=== PATIENT | male | born 1980 | race Caucasian/White ===

== ENCOUNTER 2019-04-24 10:24 | Emergency (ER) | payer SELFPAY ==
--- NOTE | 2019-04-24 11:13 | ER Document Report ---
Entered by MIGUEL PRINCE SCRIBE 04/24/19 1045 Acting as scribe for:JOHNSON CHEUNG MD ED Substance Abuse / Acc. OD - General Stated Complaint: EVALUATION Time Seen by Provider: 04/24/19 10:35 Information source: Patient Notes: Patient is a 38 year old male that presents to the emergency department today for routine lab work from [facility] facility. Patient states that he usually lives in [place]. Patient reports that he lost his apartment in [place] so he decided to try to get into a detox program since he had nowhere to live. Patient states that [place] [facility] so he went to detox in [place]. Patient states he was released from this detox program in [place] about about a week ago. Patient states he had nowhere to live after discharge. Patient reports he immediately relapsed after being discharged. Patient states that he called mobile crisis after relapsing. Patient states that "there was a bed here at [facility]" so the patient was then brought here to [facility] from [place]. 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 EMS reports when they arrived the patient had a pulse in the low 100s. Patient reports the patient never was bradycardic for them. - Related Data Allergies/Adverse Reactions: No Known Allergies Allergy (Verified 04/24/19 11:17) Past Medical History - General Information source: Patient - Social History Smoking Status: Current Every Day Smoker Cigarette use (# per day): Yes - 1 ppd Frequency of alcohol use: Rare Drug Abuse: Heroin Lives with: Family Family History: Reviewed & Not Pertinent Review of Systems - Review of Systems Constitutional: See HPI, Other - here for routine lab work from [facility] EENT: No symptoms reported Cardiovascular: No symptoms reported Respiratory: No symptoms reported Gastrointestinal: No symptoms reported Genitourinary: No symptoms reported Male Genitourinary: No symptoms reported Musculoskeletal: No symptoms reported Skin: No symptoms reported Hematologic/Lymphatic: No symptoms reported Neurological/Psychological: No symptoms reported -: Yes All other systems reviewed and negative Physical Exam - Vital signs Vitals: Pulse Ox 97 04/24/19 10:30 - Notes Notes: Physical Exam: General: Alert, appears well. HEENT: Normocephalic. Atraumatic. PERRL. Extraocular movements intact. Oropharynx clear. Neck: Supple. Non-tender. Respiratory: No respiratory distress. Clear and equal breath sounds bilaterally. Cardiovascular: Regular rate and rhythm. Abdominal: Normal Inspection. Non-tender. No distension. Normal Bowel Sounds. Back: No gross abnormalities. Extremities: Moves all four extremities. Upper extremities: Normal inspection. Normal ROM. Lower extremities: Normal inspection. No edema. Normal ROM. Neurological: Normal cognition. AAOx4. Normal speech. Psychological: Normal affect. Normal Mood. Skin: Warm. Dry. Normal color. Course - Re-evaluation Re-evalutation: 04/24/19 12:56 The patient will occasionally have frequent PVCs, many of them are non- perfusing. That may be the reason that they were recording the low pulse rates with this patient. 04/24/19 14:26 There are episodes where the patient's PVCs are every other or every third beat, when they do not perfused, someone checking his pulse for only a few seconds could get a result of heart rate in the 40s. Patient is completely asymptomatic during these episodes. He does not feel the PVCs. He can be standing when they occur and he does not get dizzy. On further questioning the patient has no family history of sudden cardiac arrest or sudden . His grandparents on one side of the family are alive in their 90s and the grandparents on the other side of the family in their 80s. His parents are alive and well. - Vital Signs Vital signs: Temp Pulse Resp BP Pulse Ox 98.2 F 16 125/85 100 04/24/19 10:46 04/24/19 13:01 04/24/19 13:01 04/24/19 13:01 - Laboratory Result Diagrams: 04/24/19 10:50 04/24/19 10:50 Laboratory results interpreted by me: 04/24/19 04/24/19 04/24/19 10:50 10:50 11:38 RDW 14.9 H Monocytes % (Manual) 21 H AST 76 H Creatine Kinase 537 H Urine Urobilinogen 2.0 H - EKG Interpretation by Nd EKG shows normal: Sinus rhythm, [place], Intervals, QRS Complexes, ST-T Waves Rate: Normal - 89 Rhythm: PVC's Discharge - Discharge Clinical Impression: Frequent unifocal PVCs Condition: Stable Disposition: HOME, SELF-CARE Additional Instructions: The patient's low heart rate was a result of him having frequent non-perfusing PVCs. He is asymptomatic during these episodes. He should not receive medications like clonidine or other beta-blockers that may slow the rate further and cause him to become symptomatic if he continues to have non-perfusing PVCs as frequently as he does now. Return to the [facility] detox facility. RETURN TO THE EMERGENCY ROOM IF ANY NEW OR WORSENING SYMPTOMS. Scribe Attestation: 04/24/19 12:11 I personally performed the services described in the documentation, reviewed and edited the documentation which was dictated to the scribe in my presence, and it accurately records my words and actions. I personally performed the services described in the documentation, reviewed and edited the documentation which was dictated to the scribe in my presence, and it accurately records my words and actions.
[2019-04-24 11:17] LABS: HEMATOCRIT 47.6 % (37.9-51.0); MEAN CORPUSCULAR HEMOGLOBIN 29.4 pg (27.0-33.4); MEAN CORPUSCULAR HGB CONC 33.5 g/dL (32.0-36.0); MEAN CORPUSCULAR VOLUME 88 fl (80-97); PLATELET COUNT 175 10^3/uL (150-450); RED BLOOD COUNT 5.42 10^6/uL (4.35-5.55); RED CELL DISTRIBUTION WIDTH 14.9 % (11.5-14.0); WHITE BLOOD COUNT 5.8 10^3/uL (4.0-10.5)
[2019-04-24 11:24] LABS: ALBUMIN 3.8 g/dL (3.5-5.0); ALKALINE PHOSPHATASE 68 U/L (38-126); ANION GAP 10 (5-19); ASPARTATE AMINO TRANSFERASE 76 U/L (17-59); BILIRUBIN,DIRECT 0.2 mg/dL (0.0-0.4); BILIRUBIN,TOTAL 0.3 mg/dL (0.2-1.3); BLOOD UREA NITROGEN 12 mg/dL (7-20); CALCIUM 9.8 mg/dL (8.4-10.2); CARBON DIOXIDE 28 mmol/L (22-30); CHLORIDE 104 mmol/L (98-107); CREATINE KINASE 537 U/L (55-170); GLUCOSE 97 mg/dL (75-110); POTASSIUM 4.2 mmol/L (3.6-5.0); TOTAL PROTEIN 6.7 g/dL (6.3-8.2)
[2019-04-24 11:38] LABS: CREATINE KINASE MB 0.47 ng/mL (<4.55)
[2019-04-24 11:39] LABS: TROPONIN I < 0.012 ng/mL
[2019-04-24 12:00] LABS: ABSOLUTE LYMPHOCYTES# (MANUAL) 1.5 10^3/uL (0.5-4.7); ABSOLUTE MONOCYTES # (MANUAL) 1.2 10^3/uL (0.1-1.4); ANISOCYTOSIS SLIGHT; BASOPHILS % (MANUAL) 2 % (0-2); EOSINOPHILS % (MANUAL) 2 % (0-6); LYMPHOCYTES % (MANUAL) 25 % (13-45); MONOCYTES % (MANUAL) 21 % (3-13); OVALOCYTES SLIGHT; PLATELET COMMENT ADEQUATE; POIKILOCYTOSIS SLIGHT; SEGMENTED NEUTROPHILS % (MAN) 50 % (42-78); TOTAL CELLS COUNTED 100
[2019-04-24 12:06] LABS: AMORPHOUS SEDIMENT,URINE TRACE /HPF; APPEARANCE,URINE SLIGHTLY-CLOUDY; BILIRUBIN,URINE NEGATIVE (NEGATIVE); COLOR,URINE YELLOW; GLUCOSE, URINE NEGATIVE (NEGATIVE); KETONES,URINE NEGATIVE (NEGATIVE); LEUKOCYTE ESTERASE,URINE NEGATIVE (NEGATIVE); NITRITE,URINE NEGATIVE (NEGATIVE); PROTEIN,URINE NEGATIVE (NEGATIVE); URINE SPECIFIC GRAVITY 1.023
[2019-04-24 12:16] LABS: URINE AMPHETAMINES SCREEN NEGATIVE; URINE BARBITURATES SCREEN UNCONFIRMED POSITIVE; URINE BENZODIAZEPINES SCREEN NEGATIVE; URINE COCAINE SCREEN NEGATIVE; URINE MARIJUANA (THC) SCREEN UNCONFIRMED POSITIVE; URINE METHADONE SCREEN NEGATIVE; URINE PHENCYCLIDINE SCREEN NEGATIVE
--- NOTE | 2019-04-24 15:04 | EKG REPORT ---
SEVERITY:- ABNORMAL ECG - SINUS RHYTHM MULTIPLE VENTRICULAR PREMATURE COMPLEXES : Confirmed by: Fab Canchola MD 24-Apr-2019 15:03:03
[2019-04-24 15:41] VITALS: BP 124/77
== END 2019-04-24 15:55 | disposition home or self-care (01) ==
LOC: ER 10:24
DX: I49.3 Ventricular premature depolarization (principal); F17.200 Nicotine dependence, unspecified, uncomplicated; F11.10 Opioid abuse, uncomplicated
CPT/HCPCS: 36415; 80053; 80307; 81001; 82550; 82553; 83735; 84484; 85025; 93005; 93010; 99285